=== PATIENT | male | born 1985 | race Asian ===

== ENCOUNTER → 2016-10-12 | Outpatient (CLI) | payer BC ==
--- NOTE | 2016-10-12 15:48 | DIAGNOSTIC IMAGING REPORT ---
LEFT ANKLE 3 VIEWS CLINICAL HISTORY: Left ankle injury. FINDINGS: 3 views of the left ankle are obtained. No prior studies are available for comparison at the time of dictation. The skeletal structures are well mineralized. No fracture is seen. The ankle mortise is intact. There is a joint effusion. Overlying soft tissue edema is noted. IMPRESSION: Soft tissue swelling and joint effusion. No left ankle fracture is identified. Electronically signed by: Shawn Rice M.D. 10/12/2016 3:46 PM Dictated Date/Time: 10/12/2016 3:45 PM
== END | disposition home or self-care (01) ==
LOC: C.RDSM 14:30
PROVIDERS: ATTEND Family Medicine
DX: M25.572 Pain in left ankle and joints of left foot (principal); M25.472 Effusion, left ankle

== ENCOUNTER → 2016-10-19 | Outpatient (CLI) | payer BC ==
--- NOTE | 2016-10-19 15:05 | DIAGNOSTIC IMAGING REPORT ---
STANDING AP VIEW OF THE ANKLES CLINICAL HISTORY: LEFT ANKLE SPRAIN PAIN COMPARISON: None. DISCUSSION: Bilateral standing AP views are provided for interpretation. There is no evidence of ankle mortise disruption. No fractures are visualized. IMPRESSION: No evidence of ankle mortise disruption Electronically signed by: Jaquan Perez M.D. 10/19/2016 3:03 PM Dictated Date/Time: 10/19/2016 3:03 PM
== END | disposition home or self-care (01) ==
LOC: C.RDSM 14:39
PROVIDERS: ATTEND Family Medicine
DX: M25.572 Pain in left ankle and joints of left foot (principal)